=== PATIENT | male | born 1990 | race Caucasian/White ===

== ENCOUNTER 2023-05-02 13:06 | Emergency (ER) | payer BC, SELFPAY ==
[2023-05-02 13:12] VITALS: BP 141/100
--- NOTE | 2023-05-02 14:26 | ED.MUSCINJ ---
HPI-Injury
General
Chief Complaint: Musculo-Skeletal Complaint
Source: patient
Exam Limitations: none
Time Seen by Provider: 05/02/23 13:56
Travel History
Have you had any contact with someone who has COVID-19?: No
Do you have any symptoms of coronavirus? Fever > 100 degrees, chills, cough, shortness of breath, sore throat, loss of taste or smell, muscle aches, or headache?: No
History of Present Illness-Injury
Initial Injury comments:
32-year-old male presents complaining of neck pain starting 2 days ago getting worse. He was doing back squats in the gym and felt a pop in his neck. Since then has had stiffness to the neck. He denies numbness or weakness to the arms. No
headache or vision change. He has been trying [id number] medications without relief. No other this time
Phy Exam
Physical Exam
Physical Exam:
General: Well-appearing male no respiratory distress
HEENT: Normocephalic atraumatic
Musculoskeletal exam: Mildly tender over the midline of the cervical spine into the right paraspinous area of the cervical spine. He has limited rotation to the right and extension of the neck.
Skin is warm no erythema
Neurologic exam: Alert and oriented good strength and sensation to the upper and lower extremities
Injury Course
Orders/Labs/Results
Orders:
Orders
05/02/23 14:06
CR Cervical Spine 2 or 3 Vw Urgent
Comment:
Reason For Exam: neck pain
MDM/Problems Addressed
Differential Diagnosis Includes:
Neck pain after lifting weights. Consider cervical strain versus avulsion injury. No signs of radiculopathy on exam. Will check x-rays
*Critical Care Note
Total Time (30-74mins, 75-104mins- exclusive of procedures): Not Applicable
Update Note
Update Note:
X-ray cervical spine shows reversal of the normal curvature. Suspect underlying muscular strain. Recommended continued warm compresses NSAIDs and will prescribe muscle relaxer. Stable for discharge
ED Attending Note
-
Portions of this chart may have been created with voice recognition software.� Occasional wrong word or��sound alike� substitutions may have occurred due to the inherent limitations of voice recognition software.
Discharge Plan
Departure
Patient Disposition: Home (Routine Discharge)
Date of Disposition: 05/02/23
Time of Disposition: 15:11
Patient with high blood pressure during this ER visit?: No
Discharge Problem:
Cervical myofascial strain
Instructions: Muscle and Bone Pain (DC)
Prescriptions:
New
cyclobenzaprine 10 mg tablet
10 mg PO Q8H PRN (Reason: muscle spasm) Qty: 10 0RF
Activity Restrictions/Additional Instructions:
Continue with warm compresses. Continue with ibuprofen. Use muscle relaxer as needed. Return for worsening symptoms otherwise follow-up with family doctor
Interventions
Interventions:
*Risk Screen - Suicide Last Done: 05/02/23 13:15
*General Assessment Last Done: 05/02/23 13:15
*Neglect/Abuse Screening Last Done: 05/02/23 13:15
ED-Musculoskeletal Assessment Last Done: 05/02/23 14:41
[2023-05-02 15:24] VITALS: BP 134/84
[2023-05-02 15:25] VITALS: BP 134/84
== END 2023-05-02 15:26 | disposition home or self-care (01) ==
LOC: EMR 13:06
PROVIDERS: EMERGENCY PHYSICIAN Emergency Medicine
DX: S16.1XXA Strain of muscle, fascia and tendon at neck level, initial encounter (principal); X50.0XXA Overexertion from strenuous movement or load, initial encounter
CPT/HCPCS: 99283; 72040